=== PATIENT | female | born 1955 | race Caucasian/White ===

== ENCOUNTER 2016-12-19 18:15 | Emergency (ER) | payer OTHER ==
[~2016-12-19] VITALS: Ht 162.6 cm; Wt 61.8 kg
[2016-12-19 18:21] VITALS: BP 144/90
[2016-12-19] MEDS ORDERED: ONDANSETRON ODT 4 MG PO ONE (19:00)
[2016-12-19] MEDS ORDERED: HYDROcodone/APAP 5/325 TABLET PO ONE (19:00)
[2016-12-19] MEDS ORDERED: HYDROcodone/APAP 5/325 TABLET ONE (19:08)
[2016-12-19] MEDS ORDERED: ONDANSETRON ODT 4 MG ONE (19:08)
== END 2016-12-19 19:28 | disposition home or self-care (01) ==
LOC: ED 19:22
DX: S42.252A Displaced fracture of greater tuberosity of left humerus, initial encounter for closed fracture (principal); G89.11 Acute pain due to trauma; V29.9XXA Motorcycle rider (driver) (passenger) injured in unspecified traffic accident, initial encounter; Y93.89 Activity, other specified; Y92.410 Unspecified street and highway as the place of occurrence of the external cause; Y99.8 Other external cause status
CPT/HCPCS: 73030; 99284; Q0162